=== PATIENT | male | born 1955 | race African-American/Black ===

== ENCOUNTER 2021-11-27 16:12 | Inpatient (IN) | payer OTHER ==
[2021-11-27 16:21] VITALS: BMI 36.2
[2021-11-27 19:29] LABS: BASO % 1.3 % (0-2.0); EOS % 5.1 % (0-4.5); LYMPH % 25.1 % (8-40); MCH 23.7 pg (25.7-33.7); MEAN PLT VOLUME 7.1 fl (7.5-11.1); MONO % 10.7 % (3.8-10.2); NEUT % 57.8 % (42.8-82.8); PLATELET COUNT 264 10^3/uL (134-434); RBC 3.79 M/mm3 (4.00-5.60); RDW 18.2 % (11.9-15.9); WHITE BLOOD COUNT 5.2 K/mm3 (4.0-10.0)
[2021-11-27 19:48] LABS: INR 0.91 (0.83-1.09); PROTHROMBIN TIME (PATIENT) 10.5 SEC (9.7-13.0)
[2021-11-27 19:52] LABS: ACTIVATED PTT 33.5 SECONDS (25.2-36.5)
[2021-11-27 19:54] LABS: CALCIUM 7.6 mg/dL (8.5-10.1)
[2021-11-27 19:55] LABS: ALBUMIN 3.5 g/dl (3.4-5.0)
[2021-11-27 19:58] LABS: CREATININE 1.8 mg/dL (0.55-1.3)
[2021-11-27 19:59] LABS: TOT PROT 6.6 g/dl (6.4-8.2)
[2021-11-27 20:00] LABS: BILIRUBIN,TOTAL 0.2 mg/dL (0.2-1)
[2021-11-27 20:03] LABS: N-TERMINAL BNP 50.9 pg/ml (5-125)
[2021-11-27] MEDS ORDERED: LACTATED RINGERS SOLUTION 1000 ML INFUS.BAG IV ONE (20:45)
[2021-11-28] MEDS ORDERED: QUEtiapine FUMARATE 50 MG TABLET PO SCH (00:15)
[2021-11-28] MEDS ORDERED: methaDONE HCL 10 MG TABLET (FOR DETOX USE ONLY) PO ONE (00:17)
[2021-11-28] MEDS ORDERED: MELATONIN 5 MG TABLETS PO ONE (00:17)
[2021-11-28] MEDS ORDERED: MELATONIN 5 MG TABLETS ONE (00:27)
[2021-11-28] MEDS ORDERED: methaDONE HCL 10 MG TABLET ONE (00:27)
[2021-11-28] MEDS ORDERED: FUROSEMIDE 40 MG/4 ML INJECTABLE VIAL ONE ×2 (09:08→17:25)
[2021-11-28] MEDS ORDERED: NICOTINE 14 MG/24 HOURS TOPICAL PATCH TD ONE (09:08)
[2021-11-28] MEDS: NICOTINE 14 MG/24 HOURS TOPICAL PATCH TD SCH (09:27)
[2021-11-28] MEDS ORDERED: FUROSEMIDE 40 MG/4 ML INJECTABLE VIAL IVPUSH SCH (10:00)
[2021-11-28] MEDS ORDERED: IRON SUCROSE INJECTION 200 MG in SODIUM CHLORIDE 90 ML IVPB ONE ×2 (14:39→15:30)
[2021-11-28] MEDS: FUROSEMIDE 40 MG/4 ML INJECTABLE VIAL IVPUSH SCH (17:38)
[2021-11-28] MEDS ORDERED: oxyCODONE HCL 5 MG TABLET ONE (17:39)
[2021-11-28] MEDS: oxyCODONE HCL 5 MG TABLET PO PRN ×2 (17:44→23:16)
[2021-11-28] MEDS: POLYETHYLENE GLYCOL (HEALTHYLAX) 3350 17 GM PACKET PO SCH (23:17)
[2021-11-29] MEDS: FUROSEMIDE 40 MG/4 ML INJECTABLE VIAL IVPUSH SCH ×2 (05:30→14:18)
[2021-11-29] MEDS: ACETAMINOPHEN 325 MG TABLET (FP) PO PRN ×2 (05:36→20:11)
[2021-11-29] MEDS: oxyCODONE HCL 5 MG TABLET PO PRN ×3 (05:36→21:43)
[2021-11-29 09:16] LABS: EOS % 7.2 % (0-4.5); HEMATOCRIT 29.7 % (35.4-49); HEMOGLOBIN 9.5 GM/dL (11.7-16.9); LYMPH % 26.2 % (8-40); MCH 23.7 pg (25.7-33.7); MCHC 32.1 g/dl (32.0-35.9); MEAN CELL VOLUME 73.6 fl (80-96); MEAN PLT VOLUME 7.1 fl (7.5-11.1); MONO % 11.7 % (3.8-10.2); NEUT % 53.9 % (42.8-82.8); PLATELET COUNT 263 10^3/uL (134-434); RBC 4.03 M/mm3 (4.00-5.60); RDW 17.6 % (11.9-15.9); WHITE BLOOD COUNT 4.4 K/mm3 (4.0-10.0)
[2021-11-29] MEDS ORDERED: IRON SUCROSE INJECTION 200 MG in SODIUM CHLORIDE 90 ML IVPB ONE (10:00)
[2021-11-29] MEDS: NICOTINE 14 MG/24 HOURS TOPICAL PATCH TD SCH (10:01)
[2021-11-29] MEDS: PANTOPRAZOLE 40 MG TABLET PO SCH (10:01)
[2021-11-29] MEDS: POLYETHYLENE GLYCOL (HEALTHYLAX) 3350 17 GM PACKET PO SCH ×2 (10:02→21:26)
[2021-11-29 10:09] LABS: ALBUMIN 3.7 g/dl (3.4-5.0); BLOOD UREA NITROGEN 30.8 mg/dL (7-18)
[2021-11-29 10:12] LABS: CREATININE 1.5 mg/dL (0.55-1.3)
[2021-11-29 10:14] LABS: BILIRUBIN,TOTAL 0.5 mg/dL (0.2-1); TOT PROT 7.4 g/dl (6.4-8.2)
[2021-11-29 10:26] LABS: CALCIUM 8.9 mg/dL (8.5-10.1)
[2021-11-29 22:36] LABS: PH,URINE 5.5 (5.0-8.0); URINE APPEARANCE CLEAR; URINE BILIRUBIN NEGATIVE (NEGATIVE); URINE COLOR YELLOW; URINE GLUCOSE (UA) 1+ (NEGATIVE); URINE KETONE NEGATIVE (NEGATIVE); URINE LEUK ESTERASE NEGATIVE (NEGATIVE); URINE NITRITE NEGATIVE (NEGATIVE); URINE PROTEIN NEGATIVE (NEGATIVE); URINE UROBILINOGEN 0.2 mg/dL (0.2-1.0)
[2021-11-29 22:44] LABS: METHADONE, UR NEGATIVE (NEGATIVE); PHENCYCLIDINE,URINE NEGATIVE (NEGATIVE); URINE AMPHETAMINES NEGATIVE (NEGATIVE); URINE BARBITURATES NEGATIVE (NEGATIVE)
[2021-11-29 23:08] LABS: COCAINE, UR POSITIVE (NEGATIVE); OPIATES, URI POSITIVE (NEGATIVE); URINE BENZODIAZEPINES POSITIVE (NEGATIVE)
[2021-11-30] MEDS: FUROSEMIDE 40 MG/4 ML INJECTABLE VIAL IVPUSH SCH ×3 (05:29→14:18)
[2021-11-30 09:06] LABS: ALBUMIN 3.7 g/dl (3.4-5.0); BLOOD UREA NITROGEN 23.8 mg/dL (7-18); CALCIUM 8.9 mg/dL (8.5-10.1)
[2021-11-30 09:09] LABS: CREATININE 1.4 mg/dL (0.55-1.3)
[2021-11-30 09:10] LABS: BILIRUBIN,TOTAL 0.4 mg/dL (0.2-1); TOT PROT 7.4 g/dl (6.4-8.2)
[2021-11-30] MEDS: POLYETHYLENE GLYCOL (HEALTHYLAX) 3350 17 GM PACKET PO SCH ×2 (09:55→21:04)
[2021-11-30] MEDS: PANTOPRAZOLE 40 MG TABLET PO SCH (09:55)
[2021-11-30] MEDS: NICOTINE 14 MG/24 HOURS TOPICAL PATCH TD SCH (09:55)
[2021-11-30] MEDS ORDERED: IRON SUCROSE INJECTION 200 MG in SODIUM CHLORIDE 90 ML IVPB ONE (10:00)
[2021-11-30] MEDS: oxyCODONE HCL 5 MG TABLET PO PRN ×2 (11:02→21:02)
[2021-11-30] MEDS ORDERED: FUROSEMIDE 40 MG TABLET (FP) PO ONE (16:15)
[2021-12-01] MEDS: FUROSEMIDE 40 MG/4 ML INJECTABLE VIAL IVPUSH SCH ×2 (06:03→06:24)
[2021-12-01] MEDS: POLYETHYLENE GLYCOL (HEALTHYLAX) 3350 17 GM PACKET PO SCH ×2 (10:26→22:07)
[2021-12-01] MEDS: FUROSEMIDE 40 MG TABLET (FP) PO SCH (10:26)
[2021-12-01] MEDS: NICOTINE 14 MG/24 HOURS TOPICAL PATCH TD SCH (10:26)
[2021-12-01] MEDS: oxyCODONE HCL 5 MG TABLET PO PRN (10:27)
[2021-12-01] MEDS: PANTOPRAZOLE 40 MG TABLET PO SCH (10:27)
[2021-12-01 12:49] LABS: HEMATOCRIT 32.6 % (35.4-49); HEMOGLOBIN 10.1 GM/dL (11.7-16.9); MCH 23.1 pg (25.7-33.7); MCHC 31.1 g/dl (32.0-35.9); MEAN CELL VOLUME 74.2 fl (80-96); MEAN PLT VOLUME 7.6 fl (7.5-11.1); PLATELET COUNT 276 10^3/uL (134-434); RBC 4.39 M/mm3 (4.00-5.60); RDW 17.7 % (11.9-15.9)
[2021-12-01 12:59] LABS: BLOOD UREA NITROGEN 18.9 mg/dL (7-18); CALCIUM 9.6 mg/dL (8.5-10.1)
[2021-12-01 13:00] LABS: ALBUMIN 4.2 g/dl (3.4-5.0)
[2021-12-01 13:03] LABS: CREATININE 1.4 mg/dL (0.55-1.3)
[2021-12-01 13:04] LABS: BILIRUBIN,TOTAL 0.6 mg/dL (0.2-1); TOT PROT 8.2 g/dl (6.4-8.2)
[2021-12-02] MEDS: FUROSEMIDE 40 MG TABLET (FP) PO SCH (09:47)
[2021-12-02] MEDS: PANTOPRAZOLE 40 MG TABLET PO SCH (09:47)
[2021-12-02] MEDS: NICOTINE 14 MG/24 HOURS TOPICAL PATCH TD SCH (09:47)
[2021-12-02] MEDS: POLYETHYLENE GLYCOL (HEALTHYLAX) 3350 17 GM PACKET PO SCH (09:47)
[2021-12-02 10:00] VITALS: BP 154/77; PULSE 67; RESP 16; TEMP 98.4
[2021-12-02 12:36] LABS: CALCIUM 9.7 mg/dL (8.5-10.1)
[2021-12-02 12:37] LABS: BLOOD UREA NITROGEN 18.4 mg/dL (7-18)
[2021-12-02 12:40] LABS: CREATININE 1.4 mg/dL (0.55-1.3)
== END 2021-12-02 12:40 | disposition home or self-care (01) | DRG 300 ==
LOC: JER 16:12 → JERBED 18:32 → J4W 11-28 18:46
PROVIDERS: ADMIT Internal Medicine; ATTEND Family Medicine
DX: I87.2 Venous insufficiency (chronic) (peripheral) (principal); F19.20 Other psychoactive substance dependence, uncomplicated; R60.9 Edema, unspecified; F11.10 Opioid abuse, uncomplicated; N18.9 Chronic kidney disease, unspecified; E66.9 Obesity, unspecified; Z68.37 Body mass index [BMI] 37.0-37.9, adult; F17.210 Nicotine dependence, cigarettes, uncomplicated; I12.9 Hypertensive chronic kidney disease with stage 1 through stage 4 chronic kidney disease, or unspecified chronic kidney disease
CPT/HCPCS: 36415; 71046-TC-FY; 76775-TC; 80048; 80053; 80307; 81003; 82105; 82570; 82728; 83540; 83550; 83880; 84156; 84300; 84466; 84484; 85025; 85027; 85045; 85610; 85730; 86780; 87522; 93005; 93010; 93306-TC; 93970-TC; 99285-25; C9803-CS; J1756; U0003; U0005

== ENCOUNTER 2023-11-12 14:48 | Emergency (ER) | payer OTHER ==
[2023-11-12 15:02] VITALS: BP 161/75; PULSE 82; RESP 18; TEMP 98.6; BMI 54.2
[2023-11-12] MEDS ORDERED: ACETAMINOPHEN 1000 MG/100 ML BAG IVPB ONE (15:26)
[2023-11-12] MEDS ORDERED: ONDANSETRON 4 MG/2 ML VIAL ONE (16:01)
[2023-11-12] MEDS ORDERED: FAMOTIDINE 20 MG/50 ML IVPB 20 MG/50 ML MG IVPB ONE (16:02)
[2023-11-12] MEDS: ONDANSETRON 4 MG/2 ML VIAL IVPUSH ONE (16:26)
[2023-11-12] MEDS: LACTATED RINGERS SOLUTION 1000 ML INFUS.BAG IV ONE (16:44)
[2023-11-12] MEDS: FAMOTIDINE 20 MG/50 ML IVPB 20 MG/50 ML MG IVPB ONE (16:44)
[2023-11-12 16:49] LABS: BASO % 0.6 % (0-2.0); EOS % 0.5 % (0-4.5); HEMATOCRIT 36.3 % (35.4-49); HEMOGLOBIN 11.9 GM/dL (11.7-16.9); LYMPH % 14.9 % (8-40); MCH 25.1 pg (25.7-33.7); MCHC 32.8 g/dl (32.0-35.9); MEAN CELL VOLUME 76.5 fl (80-96); MEAN PLT VOLUME 6.8 fl (7.5-11.1); MONO % 9.2 % (3.8-10.2); NEUT % 74.8 % (42.8-82.8); PLATELET COUNT 273 10^3/uL (134-434); RBC 4.75 M/mm3 (4.00-5.60); RDW 15.9 % (11.9-15.9)
[2023-11-12 16:50] LABS: PH,URINE 5.5 (5.0-8.0); URINE APPEARANCE CLEAR; URINE BILIRUBIN NEGATIVE (NEGATIVE); URINE COLOR YELLOW; URINE GLUCOSE (UA) NEGATIVE (NEGATIVE); URINE KETONE TRACE (NEGATIVE); URINE LEUK ESTERASE NEGATIVE (NEGATIVE); URINE NITRITE NEGATIVE (NEGATIVE); URINE PROTEIN TRACE (NEGATIVE)
[2023-11-12 17:13] LABS: POTASSIUM 3.9 mmol/L (3.5-5.1)
[2023-11-12 17:15] LABS: ALBUMIN 4.5 g/dl (3.4-5.0); BLOOD UREA NITROGEN 19.1 mg/dL (7-18); CALCIUM 9.5 mg/dL (8.5-10.1)
[2023-11-12 17:17] LABS: CREATININE 1.1 mg/dL (0.55-1.3)
[2023-11-12 17:20] LABS: BILIRUBIN,TOTAL 0.6 mg/dL (0.2-1); TOT PROT 8.1 g/dl (6.4-8.2)
[2023-11-12] MEDS ORDERED: DICYCLOMINE HCL 10 MG CAPSULE ONE (17:41)
[2023-11-12] MEDS: DICYCLOMINE HCL 20 MG TABLET PO ONE (17:42)
== END 2023-11-12 17:42 | disposition home or self-care (01) ==
LOC: JER 14:48
PROC: 3E033GC Introduction of Other Therapeutic Substance into Peripheral Vein, Percutaneous Approach (ICD-10-PCS; principal; 2023-11-12)
PROC: 3E033GC Introduction of Other Therapeutic Substance into Peripheral Vein, Percutaneous Approach (ICD-10-PCS; 2023-11-12)
DX: R11.2 Nausea with vomiting, unspecified (principal); R19.7 Diarrhea, unspecified; F19.10 Other psychoactive substance abuse, uncomplicated; F11.13 Opioid abuse with withdrawal
CPT/HCPCS: 36415; 76705-TC; 80053; 81003; 83690; 85025; 87086; 96365; 96375; 99284-25

== ENCOUNTER 2024-01-17 15:34 | Inpatient (IN) | payer OTHER ==
[2024-01-17 16:58] VITALS: BMI 40.1
[2024-01-17] MEDS ORDERED: IBUPROFEN 600 MG TABLET (FP) PO PRN (19:42)
[2024-01-17] MEDS ORDERED: BENZOCAINE/MENTHOL (CHLORASEPTIC ) LOZENGE MM PRN (19:42)
[2024-01-17] MEDS ORDERED: METHOCARBAMOL 500 MG TABLET PO PRN (19:42)
[2024-01-17] MEDS ORDERED: MAG HYDROX/AL HYDROX/SIMETH 30 ML UNIT-DOSE CUP PO PRN (19:42)
[2024-01-17] MEDS ORDERED: BENZONATATE 200 MG CAPSULE PO PRN (19:42)
[2024-01-17] MEDS ORDERED: IBUPROFEN 400 MG TABLET (FP) PO PRN (19:42)
[2024-01-17] MEDS ORDERED: hydrOXYzine PAMOATE 25 MG CAPSULE (FP) PO PRN (19:42)
[2024-01-17] MEDS ORDERED: ONDANSETRON *ODT* 4 MG TABLET SL PRN (19:42)
[2024-01-17] MEDS ORDERED: POLYETHYLENE GLYCOL (HEALTHYLAX) 3350 17 GM PACKET PO PRN (19:42)
[2024-01-17] MEDS ORDERED: cloNIDine HCL 0.1 MG TABLET PO PRN (19:42)
[2024-01-17] MEDS ORDERED: NALOXONE (NARCAN) HCL 4 MG/0.1 ML SPRAY NS PRN (19:42)
[2024-01-17] MEDS ORDERED: MAGNESIUM HYDROX 2400MG/30ML ORAL SUSPENSION 30 ML CUP PO PRN (19:42)
[2024-01-17] MEDS ORDERED: NICOTINE POLACRILEX 4 MG GUM BUC PRN (19:42)
[2024-01-17] MEDS ORDERED: guaiFENesin 600 MG TABLET.ER (FP) PO PRN (19:42)
[2024-01-17] MEDS ORDERED: LOPERAMIDE HCL 2 MG CAPSULE PO PRN (19:42)
[2024-01-17] MEDS ORDERED: DICYCLOMINE HCL 10 MG CAPSULE PO PRN (19:42)
[2024-01-17] MEDS ORDERED: methaDONE HCL 10 MG TABLET (FOR DETOX USE ONLY) ONE (21:22)
[2024-01-17] MEDS: methaDONE HCL 10 MG TABLET (FOR DETOX USE ONLY) PO ONE (21:28)
[2024-01-17] MEDS: diazePAM 5 MG TABLET PO SCH (22:33)
[2024-01-17] MEDS: THIAMINE 100 MG TABLET PO SCH (22:34)
[2024-01-17] MEDS: MELATONIN 5 MG TABLETS PO SCH (22:34)
[2024-01-18] MEDS ORDERED: FUROSEMIDE 40 MG TABLET (FP) PO SCH (06:00)
[2024-01-18] MEDS: FUROSEMIDE 20 MG TABLET (FP) PO SCH (06:08)
[2024-01-18] MEDS: NICOTINE 14 MG/24 HOURS TOPICAL PATCH TD SCH (10:40)
[2024-01-18] MEDS: PRENATAL VITAMINS W/ FOLIC ACID TABLET (FP) PO SCH (10:45)
[2024-01-18] MEDS: metoPROLOL SUCCINATE 25 MG TAB.SR.24H (FP) PO SCH (10:45)
[2024-01-18] MEDS: FAMOTIDINE 20 MG TABLET PO SCH (10:45)
[2024-01-18] MEDS: LISINOPRIL 10 MG TABLET PO SCH (10:47)
[2024-01-18 11:15] LABS: HEMATOCRIT 32.4 % (35.4-49); HEMOGLOBIN 10.6 GM/dL (11.7-16.9); MCH 25.3 pg (25.7-33.7); MCHC 32.6 g/dl (32.0-35.9); MEAN CELL VOLUME 77.6 fl (80-96); MEAN PLT VOLUME 6.8 fl (7.5-11.1); PLATELET COUNT 235 10^3/uL (134-434); RBC 4.17 M/mm3 (4.00-5.60); RDW 15.2 % (11.9-15.9); WHITE BLOOD COUNT 4.7 K/mm3 (4.0-10.0)
[2024-01-18 11:21] LABS: CHLORIDE 105 mmol/L (98-107); POTASSIUM 3.6 mmol/L (3.5-5.1); SODIUM 140 mmol/L (136-145)
[2024-01-18 11:26] LABS: ANION GAP 3 mmol/L (4-13); BLOOD UREA NITROGEN 8.9 mg/dL (7-18); CALCIUM 9.3 mg/dL (8.5-10.1); CO2 32 mmol/L (21-32)
[2024-01-18 11:27] LABS: ALBUMIN 3.6 g/dl (3.4-5.0); GLUCOSE,RANDOM 117 mg/dL (74-106)
[2024-01-18 11:29] LABS: SGPT/ALT 24 U/L (13-61)
[2024-01-18 11:30] LABS: CREATININE 0.9 mg/dL (0.55-1.3); SGOT/AST 19 U/L (15-37)
[2024-01-18 11:31] LABS: BILIRUBIN,TOTAL 0.4 mg/dL (0.2-1); TOT PROT 6.8 g/dl (6.4-8.2)
[2024-01-18 11:32] LABS: ALK PHOS 67 U/L (45-117)
[2024-01-18] MEDS: FLUTICASONE/UMECLIDIN/VILANTER(200-62.5-25 TRELEGY ELLIPTA) INAHLER IH SCH (12:21)
[2024-01-18] MEDS: ATORVASTATIN CA 10 MG TABLET (FP) PO SCH (22:04)
[2024-01-19] MEDS: diazePAM 5 MG TABLET PO SCH (05:18)
[2024-01-19] MEDS: BISMUTH SUBSALICYLATE 524 MG/30 ML PO PRN (06:39)
[2024-01-19] MEDS: methaDONE HCL 10 MG TABLET (FOR DETOX USE ONLY) PO ONE (09:41)
[2024-01-19] MEDS: diazePAM 5 MG TABLET PO PRN (09:43)
[2024-01-20] MEDS: ALBUTEROL SO4 HFA INHALER IH PRN (03:22)
[2024-01-20] MEDS: ACETAMINOPHEN 325 MG TABLET (FP) PO PRN (04:00)
[2024-01-20] MEDS: diazePAM 5 MG TABLET PO SCH (05:32)
[2024-01-20] MEDS: ACETAMINOPHEN 325 MG TABLET (FP) PO ONE (07:43)
[2024-01-20] MEDS: P-EPHED 60MG/TRIPROLIDI 2.5MG TABLET PO PRN (11:06)
[2024-01-20] MEDS: AMMONIUM LACTATE 12% LOTION 225 GM BOTTLE TP PRN (11:21)
[2024-01-21] MEDS: diazePAM 5 MG TABLET PO ONE (05:16)
[2024-01-21] MEDS: methaDONE HCL 10 MG TABLET (FOR DETOX USE ONLY) PO ONE (09:14)
[2024-01-21 09:20] VITALS: BP 153/72; PULSE 87; RESP 17; TEMP 97.1
[2024-01-21] MEDS: NALOXONE (NYS OPIOID OVERDOSE PROGRAM) 4 MG/0.1 ML SPRAY NS PRN (09:25)
== END 2024-01-21 09:35 | disposition home or self-care (01) | DRG 897 ==
LOC: YASAS 15:34 → Y3N 21:14
PROVIDERS: ADMIT Allergy & Immunology; ATTEND Surgery
PROC: HZ2ZZZZ Detoxification Services for Substance Abuse Treatment (ICD-10-PCS; principal; 2024-01-17)
DX: F11.23 Opioid dependence with withdrawal (principal); F14.20 Cocaine dependence, uncomplicated; F10.230 Alcohol dependence with withdrawal, uncomplicated; F13.230 Sedative, hypnotic or anxiolytic dependence with withdrawal, uncomplicated; F17.210 Nicotine dependence, cigarettes, uncomplicated; F19.24 Other psychoactive substance dependence with psychoactive substance-induced mood disorder; E78.2 Mixed hyperlipidemia; I12.9 Hypertensive chronic kidney disease with stage 1 through stage 4 chronic kidney disease, or unspecified chronic kidney disease; N18.9 Chronic kidney disease, unspecified; J45.20 Mild intermittent asthma, uncomplicated
CPT/HCPCS: 36415; 80053; 80305; 80307; 85027; 86780